=== PATIENT | male | born 1965 | race Caucasian/White ===

== ENCOUNTER 2019-11-16 12:26 | Inpatient (IN) | payer OTHER ==
[~2019-11-16] VITALS: Ht 177.8 cm; Wt 106.5 kg
[2019-11-16] VITALS (12 sets, daily range): BP systolic 120–219; BP diastolic 79–132
[2019-11-16] MEDS ORDERED: ZESTRIL20 MG PO (12:34)
[2019-11-16] MEDS ORDERED: BYSTOLIC20 MG PO (12:35)
[2019-11-16] MEDS ORDERED: HYDRALAZINE 5050 MG PO (12:35)
[2019-11-16] MEDS ORDERED: JARDIANCE25 MG PO (12:35)
[2019-11-16] MEDS ORDERED: HYDROCHLOROTH12.5 M2 PO (12:35)
[2019-11-16] MEDS ORDERED: FARXIGA10 MG PO (12:35)
[2019-11-16] MEDS ORDERED: SILDENAFIL CITR25 MG PO (12:36)
[2019-11-16] MEDS ORDERED: PROBENECID-COL1 EACH PO (12:36)
[2019-11-16] MEDS ORDERED: TRESIBA100 UNIT/1 SUBQ (12:37)
[2019-11-16] MEDS ORDERED: APAP W/CODEINE1 TA2 PO (12:37)
[2019-11-16] MEDS ORDERED: FEBUXOSTAT80 MG PO (12:37)
[2019-11-16] MEDS ORDERED: AMBIEN CR12.5 MG PO (12:38)
[2019-11-16] MEDS ORDERED: CLONAZEPAM 0.50.5 M1 PO (12:38)
[2019-11-16] MEDS ORDERED: CATAPRES-TTS 31 EAC1 TRANSDERM (12:38)
[2019-11-16] MEDS ORDERED: LIPITOR80 MG PO (12:38)
[2019-11-16] MEDS ORDERED: FLOMAX0.4 MG PO (12:39)
[2019-11-16] MEDS ORDERED: TRAMADOL 50 MG50 MG PO (12:39)
[2019-11-16] MEDS ORDERED: OZEMPIC1 MG/0.75 SUBQ (12:39)
[2019-11-16 12:46] LABS: ABSOLUTE EOSINOPHILS 0.1 thou/uL (0.0-0.7); ABSOLUTE LYMPHOCYTES 1.4 thou/uL (0.8-5.3); ABSOLUTE MONOCYTES 0.5 thou/uL (0.0-1.2); ABSOLUTE NEUTROPHILS 4.8 thou/uL (1.6-8.1); BASOPHILS 0.5 %; EOSINOPHILS 2.1 %; HEMATOCRIT 54.2 % (42.0-52.0); LYMPHOCYTES 20.9 %; MCH 30.8 pg (26.0-34.0); MCHC 35.1 g/dL (28.0-37.0); MCV 87.7 fL (80.0-100.0); MONOCYTES 7.3 %; MPV 7.9 fl. (7.2-11.1); NUCLEATED RBCS 0 /100WBC; PLATELET COUNT* 161 thou/uL (150-400); POLYS 69.2 %; RBC 6.18 mil/uL (4.50-6.00); WBC 6.9 thou/uL (4.0-11.0)
[2019-11-16 13:04] LABS: APTT 28.4 Seconds (25.0-31.3); INR 1.1
[2019-11-16 13:17] LABS: CALCIUM 8.9 mg/dL (8.5-10.1); CREATININE 1.5 mg/dL (0.6-1.3); POTASSIUM 3.7 mmol/L (3.5-5.1)
[2019-11-16 13:22] LABS: ALBUMIN 4.2 g/dL (3.4-5.0); TOTAL BILIRUBIN 0.5 mg/dL (<0.1-1.0); TOTAL PROTEIN 7.5 g/dL (6.4-8.2)
--- NOTE | 2019-11-16 13:52 | NUR ---
PER DR. HE TPA IS BEING HELD UNTIL CTA IS COMPLETED AND READ.
--- NOTE | 2019-11-16 16:33 | EKG ---
[place] [address] ELECTROCARDIOGRAM REPORT Name: DEYANIRA SALCEDO Room: [address] IN M.R.#: [id number] Admission: 11/16/19 Attend Phys: Deyanira Garza, Discharge: Date of : 65 Date of Service: 11/16/19 1258 Report #: [id number] THIS REPORT FOR: //name// [facility] ED Test Date: 2019-11-16 Test Time: 12:58:57 Pat Name: DEYANIRA SALCEDO Department: Room: [facility] Gender: M Youth Corrections Officer: CELINA : 1965 Requested By: Migue Vanegas Order Number: [id number] MD: Juno Gonzales Measurements Intervals [place] Rate: 97 P: 10 AR: 126 QRS: 74 QRSD: 102 T: 21 QT: 372 QTc: 473 Interpretive Statements Sinus rhythm Abnormal R-wave progression, late transition No previous ECG available for comparison Electronically Signed On 11-16-2019 16:33:22 CDT by Juno Gonzales [email or web address] <ELECTRONICALLY SIGNED> By: Juno Gonzales MD, [facility] 11/16/19 1633 1258 1258 Juno Gonzales MD, [facility] /EPI
--- NOTE | 2019-11-16 17:36 | NUR ---
SEE CODE STROKE AND TPA FLOW SHEET FOR MORE INFORMATION
--- NOTE | 2019-11-16 17:43 | CON ---
[address] [address] CONSULTATION Name: DEYANIRA SALCEDO Room: [address] ADM IN M.R.#: [id number] Admission: 11/16/19 Attend Phys: Deyanira Garza MD Discharge: Date of : 65 Report #: [id number] THIS REPORT FOR: //name// cc: Physician not on staff Physician not on staff ~ THIS REPORT FOR: //name// CC: Deyanira Garza Physician staff GAMA GONZALEZ DATE OF SERVICE: 11/16/2019 HISTORY OF PRESENT ILLNESS: This is a 54-year-old male patient who was evaluated by me for acute onset of ataxia. He said he was walking and suddenly he had acute onset of ataxia where he could not walk. He needed 2 peoples to put him on the bed as I understand from the Emergency Room physician. He has been to multiple hospitals. He went to [facility] about 6 years ago because he has an arachnoid cyst, which was putting pressure on his brain and that arachnoid cyst was surgically removed. He indicates that he is completely certain that it was an arachnoid cyst and not a tumor. He had an endarterectomy done more than 3 months ago. 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 I have asked for the record from [facility] in [facility], but we have not gotten any one of them yet. REVIEW OF SYSTEMS: Indicate that the patient says that he is very uncoordinated. He insists that he does not have any problem with anxiety or depression. His medicines include clonazepam, but he says he does not take those. I do not have anybody else I can contact him. I offered to contact his family and he says his son lives in [place] and he cannot be contacted and I cannot have any independent verification of his symptoms. When he came in, his blood pressure was high and it is still high after giving him labetalol. It has come down at one time. REVIEW OF SYSTEMS: Indicate that he does not know that he has polycythemia. He denies any anxiety, I asked him multiple times. He is hypertensive. He has a right carotid occluded on his MRA. His left carotid was stenosed. He does have a history of hypertension. Because of the urgency of the situation, that is all the history, which could be taken. PAST MEDICAL HISTORY: Positive for left carotid endarterectomy. FAMILY HISTORY: Positive for myocardial infarction and strokes [place] [address] CONSULTATION Name: DEYANIRA SALCEDO Room: [address] IN [facility]#: [id number] Admission: 11/16/19 Attend Phys: Deyanira Garza MD Discharge: Date of : 65 Report #: [id number] SOCIAL HISTORY: He insists that he was never a smoker. PHYSICAL EXAMINATION: Indicate that he is alert. He is responsive. His speech according to him is slightly dysarthric, but more or less is understandable. His cranial nerve examination 2-12 was unremarkable. He has a reasonable strength in all 4 extremities. When I asked him to do vfeb-qk-orbw, he cannot do it on either side. He is very unstable, but ultimately he does it. Similarly on hfumqr-ja-esls, he is able to do better and biggest problem appeared to be psrw-nf-djzw. His position sense is intact. His reflexes are well elicited on both sides and it is symmetrical. I did not make him walk, but he has a lot of difficulty walking. IMPRESSION: Pretty difficult to form in this patient. Initially, Emergency Room doctor, Dr. Vanegas has called me and said that this patient is having ataxia and stroke-like symptoms and has a pretty severe vascular disease. Concern in this patient was that he may have a basilar artery problem and a brainstem CVA. I talked to him on the phone and he was going to give him TPA. He was well within window and he has explained to him the indication, potential complication, and alternatives to TPA and he was going to give it to him, but I thought we should do a CT angio and perfusion to make sure there is no contraindication and let me look at it and I was in [place] and I came here, I looked that. His finding is about the same. I reviewed the CT angiogram film with the radiologist and reviewed the report. His history is correct in that regard that he has a severe vascular disease. On top of that, he has a polycythemia. His hypertension appears to be uncontrolled here or it may be a reactive hypertension to ischemia if he has ischemia. He is very unstable while doing ewvp-oc-ntud and somewhat unstable on zxpdbv-ki-gqgj, but he does it in a little bit unusual way. Therefore, I had a kelle discussion with the patient and I told him that I cannot be certain that this is a stroke. On the other hand, he had all kind of vascular risk factors and they include hypertension, polycythemia, previous severe disease in the carotid for which he already required endarterectomy on one side and other side is blocked. The patient is also a diabetic. Because of all the vascular risk factors, I cannot exclude a posterior fossa cerebrovascular accident. I discussed with him that if we try to confirm the diagnosis by doing an MRI and other studies, the time runs out to do any intervention. On the other hand, if we proceed with possible diagnosis of cerebrovascular accident, we are giving him TPA and expose him to catastrophic and potential side effect of TPA. The patient is pretty adamant that he wants TPA. He understands that the diagnosis of the stroke is not certain. He wants to proceed with TPA. It is a very difficult situation where the patient has numerous risk factors, which include severe carotid disease, polycythemia, hypertension and diabetes, but his CT perfusion does not show any pathology, but that can occur with lacunar cerebrovascular accident, smaller cerebrovascular accident or posterior fossa cerebrovascular accident, that makes the decision making very difficult. I was [place] [address] CONSULTATION Name: PILARSAGARDEYANIRA Nishant Room: [address] ADM IN [facility].#: [id number] Admission: 11/16/19 Attend Phys: Deyanira Garza MD Discharge: Date of : 65 Report #: [id number] also, but he is pretty certain it was arachnoid cyst, which was removed and I do not find any enhancing lesions. He can still bleed there. After discussing all the indication, potential complications and alternative with the TPA, which was already discussed by Emergency Room physician, Dr. Vanegas. He has started the patient on TPA. I think it is risky either way. This is because if TPA can lead to the bleeding and if we try to confirm the diagnosis of stroke further, his time for the TPA will run out. He understands the TPA is being given on a presumptive basis. He understands via not certain about the diagnosis of stroke, but we cannot rule it out either, especially in light of his severe vascular risk factor. I asked the nurses to get a consent signed from him. He gave verbal consent to proceed with it in front of the nurses. I also talked to Dr. Vanegas and I told him that whether consent is necessary or not, I think it will be desirable to get it sign. I will see the patient again before leaving and follow up this patient with you and dictate an addendum to this or dictate another progress note. <ELECTRONICALLY SIGNED> By: Sheldon Rodriguez MD 11/16/19 1743 1518 [id number] Rodriguez MD /nt
[2019-11-17] VITALS (31 sets, daily range): BP systolic 113–176; BP diastolic 67–103
[2019-11-17 02:06] LABS: GLYCOHEMOGLOBIN (HGB A1C) 6.3 % (4.8-5.6)
[2019-11-17 03:30] LABS: CHOLESTEROL 171 mg/dL (<200); HDL CHOLESTEROL 26 mg/dL (>40); TC:HDL 6.6 Ratio (Not establshd); TRIGLYCERIDE 536 mg/dL (<150); VLDL 107 mg/dL (<40)
[2019-11-17 03:34] LABS: SERUM ASSESSMENT Slight Lipemia
[2019-11-17 07:51] LABS: HEMATOCRIT 49.4 % (42.0-52.0); HEMOGLOBIN 17.4 gm/dL (14.0-18.0); MCH 30.8 pg (26.0-34.0); MCHC 35.1 g/dL (28.0-37.0); MCV 87.6 fL (80.0-100.0); MPV 8.4 fl. (7.2-11.1); RBC 5.64 mil/uL (4.50-6.00); RDW-CV 14.8 % (10.5-14.5); WBC 6.8 thou/uL (4.0-11.0)
[2019-11-17 07:54] LABS: CALCIUM 8.2 mg/dL (8.5-10.1); CREATININE 1.3 mg/dL (0.6-1.3); MAGNESIUM 1.7 mg/dL (1.8-2.4); POTASSIUM 3.7 mmol/L (3.5-5.1)
--- NOTE | 2019-11-17 12:25 | 2DMMODE ---
[place] [address] 2 D/M-MODE ECHOCARDIOGRAM Name: DEYANIRA SALCEDO Room: [facility] IN [facility]#: [id number] Admission: 11/16/19 Attend Phys: Deyanira Garza, Discharge: Date of : 65 Date of Service: 11/17/19 1225 Report #: [id number] THIS REPORT FOR: cc: Physician not on staff Physician not on staff Parag Villagomez MD [facility] ~ APPROVED REPORT Study performed: 11/17/2019 09:45:37 EXAM: Comprehensive 2D, Doppler, and color-flow Echocardiogram Patient Location: In-Patient Room #: 008 Status: routine BSA: 2.24 HR: 85 bpm BP: 137/86 mmHg Rhythm: NSR Other Information Study Quality: Good Indications CVA/TIA Echo Enhancing Agent Indication: Rule out Shunt Agent(s) / Amount(s) Used: Agitated Saline 10 cc 2D Dimensions IVSd: 12.73 (7-11mm) LVOT Diam: 20.18 (18-24mm) LVDd: 38.27 mm PWd: 12.17 (7-11mm) Ascending Ao: 33.04 (22-36mm) LVDs: 23.37 (25-40mm) Aortic Root: 34.09 mm Volumes Left Atrial Volume (Systole) LA ESV Index: 19.50 mL/m2 Aortic Valve AO Peak Gr.: 7.77 mmHg LVOT Max P.97 mmHg AO Mean Gr.: 4.50 mmHg LVOT Mean P.57 mmHg LVOT Max V: 1.32 m/s [address] [address] 2 D/M-MODE ECHOCARDIOGRAM Name: DEYANIRA SALCEDO Room: [address]#: [id number] Admission: 11/16/19 Attend Phys: Deyanira Garza, Discharge: Date of : 65 Date of Service: 11/17/19 1225 Report #: [id number] AO V2 VTI: 28.13 cm LVOT Mean V: 0.88 m/s MIRIAM (VTI): 2.96 cm2 LVOT V1 VTI: 26.00 cm Mitral Valve E/A Ratio: 0.81 MV Decel. Time: 279.71 ms MV E Max Chris.: 0.78 m/s MV PHT: 81.12 ms MVA (PHT): 2.71 cm2 TDI E/Lateral E': 9.75 E/Medial E': 7.80 Medial E' Chris.: 0.10 m/s Lateral E' Chris.: 0.08 m/s Pulmonary Valve PV Peak Chris.: 1.16 m/s PV Peak Gr.: 5.42 mmHg Left Ventricle The left ventricle is normal size. There is normal LV segmental wall motion. Mild concentric left ventricular hypertrophy. Left ventricular systolic function is normal. LVEF is 55-60%. Grade I - abnormal relaxation pattern. Right Ventricle The right ventricle is normal size. The right ventricular systolic function is normal. Atria The left atrium size is normal. The interatrial septum is intact with no evidence for an atrial septal defect. The right atrium size is normal. Aortic Valve The aortic valve is normal in structure. No aortic regurgitation is present. There is no aortic valvular stenosis. Mitral Valve The mitral valve is normal in structure. Mild mitral regurgitation. No evidence of mitral valve stenosis. Tricuspid Valve The tricuspid valve is normal in structure. There is no tricuspid valve regurgitation noted[place] [address] 2 D/M-MODE ECHOCARDIOGRAM Name: DEYANIRA SALCEDO Room: [address]#: [id number] Admission: 11/16/19 Attend Phys: Deyanira Garza, Discharge: Date of : 65 Date of Service: 11/17/19 1225 Report #: [id number] The pulmonary valve is normal in structure. There is no pulmonic valvular regurgitation. Great Vessels The aortic root is normal in size. IVC is normal in size and collapses >50% with inspiration. Pericardium There is no pericardial effusion. <Conclusion> The left ventricle is normal size. Mild concentric left ventricular hypertrophy. Left ventricular systolic function is normal. LVEF is 55-60%. Grade I - abnormal relaxation pattern. The interatrial septum is intact with no evidence for an atrial septal defect. Mild mitral regurgitation. IVC is normal in size and collapses >50% with inspiration. <ELECTRONICALLY SIGNED> By: Parag Villagomez MD, FACC 11/17/19 1225 1225 1225 Parag Villagomez MD, FACC /INF
--- NOTE | 2019-11-17 16:47 | NUR ---
PATIENT REMAINS A&O X 4, PLEASANT AND COOPERATIVE WITH CARES. C/O HEADACHE THROUGHOUT MOST OF THE DAY. PAIN MEDICATIONS HELP BUT DO NOT GET RID OF IT. PATIENT ABBREVIATED NIH OF 1. BLOOD PRESSURE WITHIN THE PARAMETERS. OFF CARDENE AT 0900. UP TO CHAIR WITH MINIMAL ASSIST. NO FURTHER CONCERNS AT THIS TIME. WILL CONTINUE TO MONITOR AND CARE PER PLAN OF CARE.
[2019-11-18] VITALS: BP 171/108
[2019-11-18 04:00] VITALS: BP 156/108
[2019-11-18 04:56] LABS: HEMATOCRIT 48.8 % (42.0-52.0); MCH 30.6 pg (26.0-34.0); MCHC 34.9 g/dL (28.0-37.0); MCV 87.6 fL (80.0-100.0); RBC 5.58 mil/uL (4.50-6.00); RDW-CV 15.1 % (10.5-14.5)
[2019-11-18 05:06] LABS: CALCIUM 8.7 mg/dL (8.5-10.1); CREATININE 1.5 mg/dL (0.6-1.3); MAGNESIUM 1.8 mg/dL (1.8-2.4); POTASSIUM 3.6 mmol/L (3.5-5.1)
--- NOTE | 2019-11-18 05:26 | NUR ---
PT TRANSFER TO FLOOR FROM ICU AT 1930. ASSESSMENT COMPLETED AT BEDSIDE, PLEASE REFER TO CHARTING FOR DETAILS. MEDICATIONS ADMINISTERED PER MAY. PT HAD C/O PAIN WITH HEADACHE TREATED WITH PRN PAIN MEDICATION WITH PARTIAL RELIEF. PT HAD HIGH BLOOD PRESSURE REQUIRING PRN HYPERTENSIVE MEDICATION WITH LITTLE IMPROVEMENT. PT IS UNDER PARAMETERS FOR PRN INTERVENTION BUT VERY CLOSE, FREQUENT BLOOD PRESSURE CHECKS FOR MONITORING IN PLACE. PT SCORING 2 ON NIH AND REMAINS HIGH FALL RISK, BED ALARM IS ON AND CALL LIGHT WITHIN REACH WITH HOURLY ROUNDING FOR SAFETY.
[2019-11-18 08:00] VITALS: BP 154/101
[2019-11-18] MEDS ORDERED: ASA81BEC PO (09:44)
[2019-11-18] MEDS ORDERED: PLAVIX 75 MG TA75 MG PO (09:44)
[2019-11-18] MEDS ORDERED: ZETIA10 MG PO (09:44)
[2019-11-18 12:14] VITALS: BP 186/117
[2019-11-18 13:00] VITALS: BP 138/84
[2019-11-18 13:05] VITALS: BP 138/84
--- NOTE | 2019-11-18 15:05 | NUR ---
CM COMPLETED ASSESSMENT TO DISCUSS DC PLANNING. PT A&OX4. PT LIVES ALONE. PT IS INDEPENDENT WITH CARES, ACTIVE HE ATTENDS TO HIS 2 ACRE PROPERTY. PT DRIVES. O DMES. DENIES HX WITH HH/SNF. CM TO F/U PT'S DOCTOR PT HAS INQUIRED ABOUT OUTPATIENT THERAPY.
--- NOTE | 2019-11-18 16:58 | NUR ---
ASSUMED PT CARE AT 0730, PT AOX4 AND C/O HEADACHE TREATED W/ PRN FENTANYL W/ SOME RELIEF. PT HAS NO C/O SHORTNESS OF BREATH. PT GOAL IS TO WORK ON DC TO HOME TODAY AND WORK ON PAIN MANAGEMENT AND KEEP BP UNDER CONTROL. BP THIS AFTERNOON WAS ELEVATED, 180'S OVER 110'S, PRN LABETALOL GIVEN AND NOTIFIED. BP RECHECKED LATER AND DOWN TO 140'S OVER 80'S. NO NEW ORDERS AND STILL SUGGESTS DC'ING. CM CONSULTED TO GET PT ORDERED FOR PATIENT AT HOME, SEE CM NOTES. DC ORDERS RECEIVED. DC INSTRUCTIONS, CARE NOTES, SCRIPTS, F/U APPTS GIVEN TO PT, PT COMMUNICATES UNDERSTANDING OF DC TEACHING. IV AND COMMERCIAL DEVELOPMENT MANAGER REMOVED. PT DC'D W/ ALL PERSONAL BELONGINGS AND PAPERWORK VIA WC W/ NURSING STAFF AT APPROX 1645.
== END 2019-11-18 16:45 | disposition home or self-care (01) | DRG 61 ==
LOC: M.ERS 12:26 → M.TBA-ER 14:34 → M.ICU 14:34 → M.2W 14:34 → M.ICU 16:16 → M.2W 11-17 18:57
PROVIDERS: Family Medicine; ADMIT Internal Medicine; ATTEND Internal Medicine
DX: I63.9 Cerebral infarction, unspecified (principal); N17.0 Acute kidney failure with tubular necrosis; I16.1 Hypertensive emergency; E11.51 Type 2 diabetes mellitus with diabetic peripheral angiopathy without gangrene; R27.0 Ataxia, unspecified; I65.29 Occlusion and stenosis of unspecified carotid artery; E11.40 Type 2 diabetes mellitus with diabetic neuropathy, unspecified; D75.1 Secondary polycythemia; I12.9 Hypertensive chronic kidney disease with stage 1 through stage 4 chronic kidney disease, or unspecified chronic kidney disease; E66.9 Obesity, unspecified; E11.22 Type 2 diabetes mellitus with diabetic chronic kidney disease; N18.3 Chronic kidney disease, stage 3 (moderate); E11.65 Type 2 diabetes mellitus with hyperglycemia; Z20.828 Contact with and (suspected) exposure to other viral communicable diseases; Z79.4 Long term (current) use of insulin; Z79.899 Other long term (current) drug therapy; Z88.8 Allergy status to other drugs, medicaments and biological substances; Z68.33 Body mass index [BMI] 33.0-33.9, adult; Z86.73 Personal history of transient ischemic attack (TIA), and cerebral infarction without residual deficits

== ENCOUNTER → 2019-12-23 | Outpatient (CLI) | payer OTHER ==
[~2019-12-23] MED LIST: AMBIEN CR12.5 MG PO; APAP W/CODEINE1 TA2 PO; ASA81BEC PO; BYSTOLIC20 MG PO; CATAPRES-TTS 31 EAC1 TRANSDERM; CLONAZEPAM 0.50.5 M1 PO; FARXIGA10 MG PO; FEBUXOSTAT80 MG PO; FLOMAX0.4 MG PO; HYDRALAZINE 5050 MG PO; HYDROCHLOROTH12.5 M2 PO; JARDIANCE25 MG PO; LIPITOR80 MG PO; OZEMPIC1 MG/0.75 SUBQ; PLAVIX 75 MG TA75 MG PO; PROBENECID-COL1 EACH PO; SILDENAFIL CITR25 MG PO; TRAMADOL 50 MG50 MG PO; TRESIBA100 UNIT/1 SUBQ; ZESTRIL20 MG PO; ZETIA10 MG PO
== END ==
LOC: M.MRI 07:47
PROVIDERS: ATTEND Family Medicine
DX: M51.27 Other intervertebral disc displacement, lumbosacral region (principal); M47.817 Spondylosis without myelopathy or radiculopathy, lumbosacral region; M48.061 Spinal stenosis, lumbar region without neurogenic claudication; M25.78 Osteophyte, vertebrae

== ENCOUNTER → 2020-01-09 | Outpatient (CLI) | payer OTHER | LOC: M.PC 08:15 | PROVIDERS: ATTEND Physical Medicine & Rehabilitation | DX: M54.5 Low back pain (principal) ==

== ENCOUNTER → 2020-06-01 | Outpatient (CLI) | payer OTHER | LOC: M.RAD 14:27 | PROVIDERS: ATTEND Family Medicine | DX: S99.921A Unspecified injury of right foot, initial encounter (principal); M79.671 Pain in right foot; M19.071 Primary osteoarthritis, right ankle and foot; M79.89 Other specified soft tissue disorders; M25.774 Osteophyte, right foot; X58.XXXA Exposure to other specified factors, initial encounter; Y92.89 Other specified places as the place of occurrence of the external cause; Y93.89 Activity, other specified; Y99.8 Other external cause status ==

== ENCOUNTER → 2020-12-31 | Outpatient (CLI) | payer OTHER ==
[~2020-12-31] MED LIST changes: +ACCU-CHEK COMB1 EACH SUBQ; +FREESTYLE LIBR1 EAC2 MISCELL; +INDOMETHACIN 5050 M1 PO; +NOVOLOG100 UNIT/1 SUBQ; +PROBENECID500 MG PO; +VASCEPA1 GM PO
== END ==
LOC: M.MRI 07:14
PROVIDERS: ATTEND Family Medicine
DX: M51.16 Intervertebral disc disorders with radiculopathy, lumbar region (principal); M48.061 Spinal stenosis, lumbar region without neurogenic claudication; M51.15 Intervertebral disc disorders with radiculopathy, thoracolumbar region; M51.17 Intervertebral disc disorders with radiculopathy, lumbosacral region; M48.07 Spinal stenosis, lumbosacral region

== ENCOUNTER 2021-02-11 23:19 | Emergency (ER) | payer OTHER ==
[~2021-02-11] VITALS: Ht 177.8 cm; Wt 106.6 kg
--- NOTE | ~2021-02-11 | EMS ---
[facility] [address] [place] [address] EMS Patient Care Report Name: DEYANIRA DE LA TORRE Room: [facility]#: [id number] Admission: 02/11/21 Attend Phys: Discharge: 02/12/21 Date of : 65 Report #: [id number] THIS REPORT FOR: //name// Report Transmitted: 02/12/2021 06:05 EMS Care Summary [facility] [place] Incident [id number] @ 02/11/2021 22:30 Incident Location [facility] [place] [address] Patient Deyanira de la torre Male, 55 Years 1965 Patient Address [address] [place] [address] Patient History Other dorsalgia,Hypertension (HTN),Type 2 diabetes mellitus, Patient Allergies No known allergies, Patient Medications Hydrocodone, Chief Complaint Back pain Disposition Transported No Lights/[place] Dispatch Reason Back Pain (Non-Traumatic) Transported To [facility] Narrative dispatched for back pain, arrive with Fire. Find patient is waiting for EMS arrival, he is hunched over while standing up. Patient is able to speaking full sentences, but continuously stops talking stating due to pain. He shuffles when he has to walk, and can not walk without assistance. Patient states he had back [facility] [address] [place] [address] EMS Patient Care Report Name: DEYANIRA DE LA TORRE Room: [facility]#: [id number] Admission: 02/11/21 Attend Phys: Discharge: 02/12/21 Date of : 65 Report #: [id number] surgery two weeks ago for spine issues, but that is no the reason for calling [facility]. The patient has a history of having kidney stones, last one being 10 ten years ago. That stone measured over 12 cm and had to be surgically removed. Tonight the patient started having pain about four hours before calling; he stated the pain began to increase in intensity and he could no longer urinate. Primary assessment stated above, patient was able to shuffle to the cot with assistance. He stated extreme pain while doing this. Though pain was from his back and kidney issues, all safety belts were fasten and he was loaded into ambulance. Placed patient on the monitor and gained vitals. Obtained secondary and SAMPLE history. Gained IV access and checked his blood sugar.. placed patient on capnography. Administered narcotics, began transport to [facility]. En route, patient rested comfortably on the cot. He stated pain had went down in intensity. Patient remained hypertensive the entire transport, he never complained of any headache or vision changes. he stated it was just due to the pain from the two sources and the movement of the truck. his other vitals remained within normal limits. he had stated to complain of more pain, I administered 25 mcg of fentanyl, he stated pain was now a four. Gave radio report to [facility]; arrived and unloaded patient without incident. Took him to ER room eight, patient walked in with assistance from EMS ad his nurse. Gave report to receiving RN, obtained his signature and filled out my narcotics sheet. Witnessed patient sign for himself. Initial Vitals @22:40Pain: 01/06, @23:00Pain: 09/06, @23:10Pain: 07/07, @22:53SpO2: 96, @22:58SpO2: 97, @23:04SpO2: 97, @23:10SpO2: 95, @22:46P: 112,R: 18,BP: 189/138, @22:58P: 109,R: 18,BP: 196/137, @23:04P: 105,R: 18,BP: 188/139, @23:10P: 110,R: 18,BP: 193/130, @22:19KxTH0: 33, @22:44TvLB4: 32, @23:18UoCW4: 38, @23:42MsQK7: 37, @22:46GCS: 15, @22:58GCS: 15, @23:04GCS: 15, @23:10GCS: 15, @23:00 @22:58Glucose: 201, [place] [address] EMS Patient Care Report Name: DEYANIRA DE LA TORRE [id number] Admission: 02/11/21 Attend Phys: Discharge: 02/12/21 Date of : 65 Report #: [id number] @22:40MENTAL:SKIN:HEENT:LUNG SOUNDS:ABDOMEN:PELVIS//GI:EXTREMITIES:PULSE:NEURO: Impression Acute abdomen Procedures @22:52 Fentanyl - 50.000 Micrograms (mcg) - Intravenous (IV) Response: Improved @23:05 Fentanyl - 25.000 Micrograms (mcg) - Intravenous (IV) Response: Improved @23:00 Other - Medication - 500.000 Milliliters (ml) - Intravenous (IV) Response: Unchanged @22:48 IV Therapy - cc () Site: Antecubital-Left Response: UnchangedSucceeded @22:58 ETCO2 digital capnography Response: UnchangedSucceeded @22:58 ETCO2 digital capnography Response: UnchangedSucceeded @23:04 ETCO2 digital capnography Response: UnchangedSucceeded @23:10 ETCO2 digital capnography Response: UnchangedSucceeded Timeline 18:00,Call Received 22:30,Dispatch Notified 22:30,Psap Call 22:30,Dispatched 22:31,En Route 22:38,On Scene 22:40,At Patient 22:40,BP: / M,PULSE: ,RR: R,SPO2: Ox,ETCO2: ,BG: ,PAIN: 10,GCS: , 22:46,BP: 189/138 M,PULSE: 112,RR: 18 R,SPO2: Ox,ETCO2: ,BG: ,PAIN: ,GCS: , 22:46,BP: / M,PULSE: ,RR: R,SPO2: Ox,ETCO2: ,BG: ,PAIN: ,GCS: 15, 22:48,IV Therapy - cc Site: Antecubital-Left,Response: UnchangedSucceeded, 22:52,Fentanyl - 50.000 Micrograms (mcg) - Intravenous (IV),Response: Improved 22:53,BP: / M,PULSE: ,RR: R,SPO2: 96 Ox,ETCO2: ,BG: ,PAIN: ,GCS: , 22:55,Depart Scene 22:58,ETCO2 digital capnography,Response: UnchangedSucceeded, 22:58,ETCO2 digital capnography,Response: UnchangedSucceeded, 22:58,BP: / M,PULSE: ,RR: R,SPO2: 97 Ox,ETCO2: ,BG: ,PAIN: ,GCS: , 22:58,BP: 196/137 M,PULSE: 109,RR: 18 R,SPO2: Ox,ETCO2: ,BG: ,PAIN: ,GCS: , 22:58,BP: / M,PULSE: ,RR: R,SPO2: Ox,ETCO2: 33 ,BG: ,PAIN: ,GCS: , 22:58,BP: / M,PULSE: ,RR: R,SPO2: Ox,ETCO2: 32 ,BG: ,PAIN: ,GCS: , 22:58,BP: / M,PULSE: ,RR: R,SPO2: Ox,ETCO2: ,BG: ,PAIN: ,GCS: 15, 22:58,BP: / M,PULSE: ,RR: R,SPO2: Ox,ETCO2: ,B,PAIN: ,GCS: , 23:00,Other - Medication - 500.000 Milliliters (ml) - Intravenous (IV),Response: Unchanged 23:00,BP: / M,PULSE: ,RR: R,SPO2: Ox,ETCO2: ,BG: ,PAIN: ,GCS: , 23:00,BP: / M,PULSE: ,RR: R,SPO2: Ox,ETCO2: ,BG: ,PAIN: 6,GCS: , 23:04,ETCO2 digital capnography,Response: UnchangedSucceeded, [place] [address] EMS Patient Care Report Name: DEYANIRA DE LA TORRE Room: [facility]#: [id number] Admission: 02/11/21 Attend Phys: Discharge: 02/12/21 Date of : 65 Report #: [id number] 23:04,BP: / M,PULSE: ,RR: R,SPO2: 97 Ox,ETCO2: ,BG: ,PAIN: ,GCS: , 23:04,BP: 188/139 M,PULSE: 105,RR: 18 R,SPO2: Ox,ETCO2: ,BG: ,PAIN: ,GCS: , 23:04,BP: / M,PULSE: ,RR: R,SPO2: Ox,ETCO2: 38 ,BG: ,PAIN: ,GCS: , 23:04,BP: / M,PULSE: ,RR: R,SPO2: Ox,ETCO2: ,BG: ,PAIN: ,GCS: 15, 23:05,Fentanyl - 25.000 Micrograms (mcg) - Intravenous (IV),Response: Improved 23:10,ETCO2 digital capnography,Response: UnchangedSucceeded, 23:10,BP: / M,PULSE: ,RR: R,SPO2: 95 Ox,ETCO2: ,BG: ,PAIN: ,GCS: , 23:10,BP: 193/130 M,PULSE: 110,RR: 18 R,SPO2: Ox,ETCO2: ,BG: ,PAIN: ,GCS: , 23:10,BP: / M,PULSE: ,RR: R,SPO2: Ox,ETCO2: 37 ,BG: ,PAIN: ,GCS: , 23:10,BP: / M,PULSE: ,RR: R,SPO2: Ox,ETCO2: ,BG: ,PAIN: ,GCS: 15, 23:10,BP: / M,PULSE: ,RR: R,SPO2: Ox,ETCO2: ,BG: ,PAIN: 4,GCS: , 23:15,At Destination 23:34,Call Closed Disclaimer v1.1 Copyright 2020 [employer] This EMS Care Summary contains data elements from the applicable legal record (which may be displayed differently). It is designed to provide pertinent information for the following purposes: continuity of care, clinical quality, and state data reporting. The complete legal record is available to ED staff and administrators of the receiving hospital in [employer]'s Patient Tracker. All data is provided "as is."
[2021-02-12 00:23] LABS: HEMATOCRIT 50.1 % (42.0-52.0); HEMOGLOBIN 17.1 gm/dL (14.0-18.0); MCH 29.3 pg (26.0-34.0); MCHC 34.1 g/dL (28.0-37.0); MPV 7.2 fl. (7.2-11.1); NUCLEATED RBCS 0 /100WBC; PLATELET COUNT* 222 thou/uL (150-400); RBC 5.83 mil/uL (4.50-6.00); RDW-CV 14.5 % (10.5-14.5); WBC 12.7 thou/uL (4.0-11.0)
[2021-02-12 00:24] LABS: URINE BILIRUBIN NEGATIVE (Negative); URINE BLOOD NEGATIVE (Negative); URINE CLARITY CLEAR; URINE COLOR YELLOW; URINE GLUCOSE-RANDOM 3+ (Negative); URINE KETONES NEGATIVE (Negative); URINE LEUKOCYTES-REFLEX NEGATIVE (Negative); URINE NITRITE-REFLEX NEGATIVE (Negative); URINE PROTEIN NEGATIVE (Negative); URINE UROBILINOGEN 0.2 E.U./dl (0.2-1.0)
[2021-02-12 00:29] LABS: CALCIUM 8.9 mg/dL (8.5-10.1); CREATININE 1.6 mg/dL (0.6-1.3)
[2021-02-12 00:31] LABS: ALBUMIN 3.9 g/dL (3.4-5.0); TOTAL BILIRUBIN 0.5 mg/dL (<0.1-1.0); TOTAL PROTEIN 7.1 g/dL (6.4-8.2)
[2021-02-12 02:48] LABS: ABSOLUTE LYMPHOCYTES 1.7 thou/uL (0.8-5.3); ABSOLUTE MONOCYTES 0.1 thou/uL (0.0-1.2); ABSOLUTE NEUTROPHILS 10.9 thou/uL (1.6-8.1); PLATELET ESTIMATE ADEQUATE
[2021-02-12 03:51] VITALS: BP 162/101
== END 2021-02-12 03:57 | disposition home or self-care (01) ==
LOC: M.ERS 23:19
PROVIDERS: Personal Emergency Response Attendant
DX: M54.50 Low back pain, unspecified (principal); I10 Essential (primary) hypertension; E11.9 Type 2 diabetes mellitus without complications; E66.9 Obesity, unspecified; Z79.4 Long term (current) use of insulin; Z79.899 Other long term (current) drug therapy; Z88.8 Allergy status to other drugs, medicaments and biological substances